=== PATIENT | male | born 1945 | race Caucasian/White ===

== ENCOUNTER 2022-06-16 01:20 | Inpatient (IN) | payer MEDICARE ==
[~2022-06-16] VITALS: Ht 175.3 cm; Wt 57.6 kg
[2022-06-16] VITALS (9 sets, daily range): BP systolic 106–159; BP diastolic 60–83
[2022-06-16] MEDS ORDERED: IPRATROPIUM BROMIDE (0.02%) 0.5MG/2.5ML NEB HHN STA (01:22)
[2022-06-16] MEDS ORDERED: ALBUTEROL (0.083%) 2.5MG/3ML NEB HHN STA (01:22)
[2022-06-16] MEDS ORDERED: METHYLPREDNISOLONE SOD SUCC 125 MG/2 ML VIAL IV STA (01:22)
[2022-06-16] MEDS ORDERED: MAGNESIUM 2 G PREMIX 50 ML IV STA (01:22)
[2022-06-16] MEDS ORDERED: FUROSEMIDE 40MG/4ML VIAL IV ONE (01:30)
[2022-06-16] MEDS ORDERED: NITROGLYCERIN 0.4MG TABLET SL SL PRN (01:30)
[2022-06-16 01:44] LABS: BASOPHILS % 0.1 % (0.0-2.0); HEMATOCRIT. 49.1 % (42.0-52.0); HEMOGLOBIN. 16.5 g/dL (14.0-18.0); LYMPHOCYTES % 19.1 % (20.0-50.0); MEAN CORPUSCULAR HEMOGLOBIN 32.1 pg (28.0-32.0); MEAN CORPUSCULAR VOLUME 95.6 fL (80.0-94.0); MEAN PLATELET VOLUME 9.5 fl (7.4-10.4); MONOCYTES % 7.2 % (2.0-8.0); NEUTROPHILS % 73.6 % (40.0-76.0); PLATELET 305 x1000/uL (130-400); RED BLOOD CELL COUNT 5.14 mill/uL (4.7-6.1); RED CELL DISTRIBUTION WIDTH 12.3 % (11.6-14.6)
[2022-06-16 01:48] LABS: CHLORIDE 106 mEq/L (98-107)
[2022-06-16] MEDS ORDERED: CEFTRIAXONE 1 G PREMIX 50 ML IV NR (03:00)
[2022-06-16] MEDS ORDERED: AZITHROMYCIN 500 MG in DEXT 5% WATER 250 ML IV NR (03:00)
[2022-06-16 10:11] LABS: BG BASE EXCESS 1.6 mmol/L (-2.0-2.0); BG DEOXYHEMOGLOBIN 0.8 % (0.0-5.0); BG FRACTION INSPIRED OXYGEN 60; BG HCO3 ACT 24.5 mmol/L (22.0-26.0); BG METHEMOGLOBIN 0.6 % (0.0-1.5); BG OXYGEN SATURATION 99.2 % (92.0-98.5); BG OXYHEMOGLOBIN 98.6 % (94.0-97.0); BG PCO2 33.7 mmHg (35.0-45.0); BG PH 7.479 (7.350-7.450); BG PO2 225.9 mmHg (75.0-100.0); BG SAMPLE SITE RIGHT RADIAL; BG TOTAL HEMOGLOBIN 15.5 g/dL (12.0-18.0); BG VENT MODE MASK - SIMPLE
[2022-06-16] MEDS ORDERED: HYDROCODONE/ACETAMINOPHEN 5/325MG TABLET PO PRN (10:15)
[2022-06-16] MEDS ORDERED: IPRATROPIUM/ALBUTEROL 0.5-3(2.5)MG/3ML NEB HHN PRN (10:15)
[2022-06-16] MEDS ORDERED: ACETAMINOPHEN 325MG TABLET PO PRN ×2 (10:15)
[2022-06-16] MEDS ORDERED: DOCUSATE SODIUM 100MG CAPSULE PO PRN (10:15)
[2022-06-16] MEDS ORDERED: ONDANSETRON HCL 4MG/2ML INJ IV PRN (10:15)
[2022-06-16] MEDS ORDERED: POTASSIUM CHLORIDE 20MEQ TABLET SR PO NR (10:45)
[2022-06-16] MEDS ORDERED: NALOXONE HCL 0.4MG/ML VIAL IV PRN (10:45)
[2022-06-16] MEDS: LORAZEPAM 0.5MG TABLET PO PRN ×2 (11:57→17:42)
[2022-06-16] MEDS: PREDNISONE 20MG TABLET PO SCH (13:11)
[2022-06-16] MEDS: IPRATROPIUM/ALBUTEROL 0.5-3(2.5)MG/3ML NEB HHN SCH (20:51)
[2022-06-17] VITALS (12 sets, daily range): BP systolic 110–158; BP diastolic 50–83
[2022-06-17] MEDS: IPRATROPIUM/ALBUTEROL 0.5-3(2.5)MG/3ML NEB HHN SCH ×4 (01:15→20:50)
[2022-06-17 06:52] LABS: CHLORIDE 104 mEq/L (98-107)
[2022-06-17 07:00] LABS: HEMATOCRIT. 42.6 % (42.0-52.0); HEMOGLOBIN. 14.5 g/dL (14.0-18.0); MEAN CORPUSCULAR HEMOGLOBIN 32.5 pg (28.0-32.0); MEAN CORPUSCULAR VOLUME 95.5 fL (80.0-94.0); MEAN PLATELET VOLUME 9.8 fl (7.4-10.4); PLATELET 178 x1000/uL (130-400); RED BLOOD CELL COUNT 4.46 mill/uL (4.7-6.1); RED CELL DISTRIBUTION WIDTH 12.2 % (11.6-14.6)
[2022-06-17] MEDS: PREDNISONE 20MG TABLET PO SCH (08:50)
[2022-06-17] MEDS: CLONIDINE 0.1MG TABLET PO PRN (08:51)
[2022-06-17] MEDS: GUAIFENESIN-DM 200MG-20MG/10ML UDC PO PRN ×2 (09:33→18:05)
[2022-06-17 09:45] LABS: PLATELET ESTIMATE NORMAL
[2022-06-17] MEDS: ENOXAPARIN 40MG/0.4ML SYR SUBCUT SCH (12:15)
[2022-06-17] MEDS: PANTOPRAZOLE 40MG DR TABLET PO SCH (12:15)
[2022-06-17] MEDS: LORAZEPAM 0.5MG TABLET PO PRN (18:05)
[2022-06-17] MEDS: ATORVASTATIN CALCIUM 20MG TABLET PO SCH (20:30)
[2022-06-18] VITALS (10 sets, daily range): BP systolic 107–157; BP diastolic 56–80
[2022-06-18] MEDS: IPRATROPIUM/ALBUTEROL 0.5-3(2.5)MG/3ML NEB HHN SCH ×4 (01:11→22:08)
[2022-06-18] MEDS: LORAZEPAM 0.5MG TABLET PO PRN ×3 (01:50→11:29)
[2022-06-18 06:46] LABS: HEMATOCRIT. 44.4 % (42.0-52.0); HEMOGLOBIN. 15.2 g/dL (14.0-18.0); MEAN CORPUSCULAR HEMOGLOBIN 32.6 pg (28.0-32.0); MEAN PLATELET VOLUME 9.8 fl (7.4-10.4); PLATELET 237 x1000/uL (130-400); RED BLOOD CELL COUNT 4.67 mill/uL (4.7-6.1); RED CELL DISTRIBUTION WIDTH 12.4 % (11.6-14.6)
[2022-06-18 07:35] LABS: CHLORIDE 106 mEq/L (98-107)
[2022-06-18] MEDS: GUAIFENESIN-DM 200MG-20MG/10ML UDC PO PRN (07:40)
[2022-06-18] MEDS: PANTOPRAZOLE 40MG DR TABLET PO SCH (07:41)
[2022-06-18] MEDS: BUDESONIDE 0.5MG/2ML NEB HHN SCH ×3 (08:37→22:07)
[2022-06-18] MEDS: PREDNISONE 20MG TABLET PO SCH (09:10)
[2022-06-18] MEDS: ENOXAPARIN 40MG/0.4ML SYR SUBCUT SCH (11:35)
[2022-06-18 16:05] LABS: PLATELET ESTIMATE NORMAL
[2022-06-18] MEDS ORDERED: IOHEXOL-350 100 ML BOTTLE ONE (18:56)
[2022-06-18] MEDS: CLONIDINE 0.1MG TABLET PO PRN (19:09)
[2022-06-18] MEDS: ATORVASTATIN CALCIUM 20MG TABLET PO SCH (20:13)
[2022-06-19] VITALS (9 sets, daily range): BP systolic 108–152; BP diastolic 55–99
[2022-06-19] MEDS: IPRATROPIUM/ALBUTEROL 0.5-3(2.5)MG/3ML NEB HHN SCH ×4 (01:29→20:59)
[2022-06-19 06:35] LABS: BASOPHILS % 0.1 % (0.0-2.0); HEMATOCRIT. 39.6 % (42.0-52.0); HEMOGLOBIN. 13.7 g/dL (14.0-18.0); LYMPHOCYTES % 7.1 % (20.0-50.0); MEAN CORPUSCULAR HEMOGLOBIN 33.1 pg (28.0-32.0); MEAN CORPUSCULAR VOLUME 95.4 fL (80.0-94.0); MEAN PLATELET VOLUME 9.8 fl (7.4-10.4); MONOCYTES % 6.8 % (2.0-8.0); PLATELET 182 x1000/uL (130-400); RED BLOOD CELL COUNT 4.15 mill/uL (4.7-6.1); RED CELL DISTRIBUTION WIDTH 12.2 % (11.6-14.6)
[2022-06-19 06:36] LABS: CHLORIDE 104 mEq/L (98-107)
[2022-06-19] MEDS: FAMOTIDINE 20MG TABLET PO SCH ×2 (08:26→17:55)
[2022-06-19] MEDS: PREDNISONE 20MG TABLET PO SCH (08:27)
[2022-06-19] MEDS: BUDESONIDE 0.5MG/2ML NEB HHN SCH ×2 (08:38→21:00)
[2022-06-19] MEDS: LORAZEPAM 0.5MG TABLET PO PRN ×2 (10:43→20:50)
[2022-06-19] MEDS: GUAIFENESIN-DM 200MG-20MG/10ML UDC PO PRN (10:47)
[2022-06-19] MEDS: ENOXAPARIN 40MG/0.4ML SYR SUBCUT SCH (14:36)
[2022-06-19] MEDS: FLUOXETINE HCL 10 MG CAPSULE PO SCH (18:51)
[2022-06-19] MEDS: ATORVASTATIN CALCIUM 20MG TABLET PO SCH (20:22)
[2022-06-20] VITALS (7 sets, daily range): BP systolic 113–155; BP diastolic 59–98
[2022-06-20] MEDS: IPRATROPIUM/ALBUTEROL 0.5-3(2.5)MG/3ML NEB HHN SCH ×3 (02:49→14:06)
[2022-06-20 06:14] LABS: CHLORIDE 101 mEq/L (98-107)
[2022-06-20 06:24] LABS: HEMATOCRIT. 43.2 % (42.0-52.0); HEMOGLOBIN. 14.9 g/dL (14.0-18.0); MEAN CORPUSCULAR HEMOGLOBIN 32.7 pg (28.0-32.0); MEAN CORPUSCULAR VOLUME 94.9 fL (80.0-94.0); MEAN PLATELET VOLUME 9.9 fl (7.4-10.4); PLATELET 196 x1000/uL (130-400); RED BLOOD CELL COUNT 4.55 mill/uL (4.7-6.1); RED CELL DISTRIBUTION WIDTH 12.4 % (11.6-14.6)
[2022-06-20] MEDS: FLUOXETINE HCL 10 MG CAPSULE PO SCH (08:45)
[2022-06-20] MEDS: PREDNISONE 20MG TABLET PO SCH (08:45)
[2022-06-20] MEDS: FAMOTIDINE 20MG TABLET PO SCH ×2 (08:45→17:24)
[2022-06-20] MEDS: BUDESONIDE 0.5MG/2ML NEB HHN SCH (09:07)
[2022-06-20 13:13] LABS: PROTHROMBIN TIME 10.4 sec (9.6-11.0)
[2022-06-20] MEDS: ENOXAPARIN 40MG/0.4ML SYR SUBCUT SCH (15:53)
[2022-06-20 18:05] LABS: PLATELET ESTIMATE NORMAL
== END 2022-06-20 18:49 | disposition short-term general hospital (02) | DRG 189 ==
LOC: ER 01:20 → 5EST 02:59 → ENRESERV 07:17
PROVIDERS: ADMIT Internal Medicine; ATTEND Internal Medicine
PROC: 5A09357 Assistance with Respiratory Ventilation, Less than 24 Consecutive Hours, Continuous Positive Airway Pressure (ICD-10-PCS; principal; 2022-06-16)
PROC: 5A09357 Assistance with Respiratory Ventilation, Less than 24 Consecutive Hours, Continuous Positive Airway Pressure (ICD-10-PCS; 2022-06-19)
PROC: 5A09357 Assistance with Respiratory Ventilation, Less than 24 Consecutive Hours, Continuous Positive Airway Pressure (ICD-10-PCS; 2022-06-20)
DX: J96.20 Acute and chronic respiratory failure, unspecified whether with hypoxia or hypercapnia (principal); J98.59 Other diseases of mediastinum, not elsewhere classified; I31.3 Pericardial effusion (noninflammatory); I25.10 Atherosclerotic heart disease of native coronary artery without angina pectoris; I10 Essential (primary) hypertension; E78.5 Hyperlipidemia, unspecified; I45.10 Unspecified right bundle-branch block; Z20.822 Contact with and (suspected) exposure to COVID-19; D49.89 Neoplasm of unspecified behavior of other specified sites; J45.909 Unspecified asthma, uncomplicated; F43.22 Adjustment disorder with anxiety; L72.3 Sebaceous cyst; R91.1 Solitary pulmonary nodule; Z87.01 Personal history of pneumonia (recurrent)
CPT/HCPCS: 36415; 36600; 71045; 71275; 80048; 80053; 80061; 82375; 82805; 83735; 83880; 84484; 85025; 86850; 86900; 87426; 93005; 93306; 94640; 94644; 94660; 99291; J0456; J0696; J1650; J1940; J2930; J3475; J7060; J7512; J7626; Q9967